=== PATIENT | male | born 1980 ===

== ENCOUNTER 2016-10-26 10:38 | Day surgery (SDC) | payer OTHER ==
[2016-10-26 11:20] VITALS: BMI 20.7
--- NOTE | 2016-10-26 13:17 | CP.SDSHP ---
Same Day Surgery H & P - History Proposed Procedure: EGD Pre-Op Diagnosis: SEE NOTES - Previous Medical/Surgical History Cardiac: Hypertension Neuro: Backaches, Other Misc: Other - Allergies Allergies: Allergies No Known Allergies Allergy (Verified 10/26/16 11:19) - Physical Exam General Appearance: N Vital Signs: Vital Signs 10/26/16 10/26/16 11:54 13:12 Temperature 98.7 F 98.7 F Pulse Rate 65 65 Respiratory 19 19 Rate Blood Pressure 109/88 109/88 O2 Sat by Pulse 100 100 Oximetry Mental Status: Alert & Oriented x3 Neuro: WNL Heart: WNL Lungs: WNL GI: Other - {Optional Preform as Required} Breast: WNL Rectal: Other Integument: WNL : WNL Ortho: Other ENT: WNL - Impression Pt. Evaluated Today:Candidate for Anesthesia & Procedure: Yes - Date & Time Time: :17 Short Stay Discharge - Short Stay Discharge Admitting Diagnosis/Reason for Visit: DYSPEPSIA Disposition: HOME/ ROUTINE
[2016-10-26] MEDS ORDERED: Pantoprazole 40 mg EC Tab PO STA (13:33)
[2016-10-26] MEDS ORDERED: Belladonna-Phenobarbital PO STA (13:33)
[2016-10-26] MEDS ORDERED: Propofol 10 mg/ml Inj (20 ML) ONE (13:43)
[2016-10-26 14:52] VITALS: TEMP 98.4
[2016-10-26 15:03] VITALS: BP 115/61; PULSE 53; RESP 16; O2SAT 100
== END 2016-10-26 15:40 | disposition home or self-care (01) ==
LOC: C.ENDO 10:38
PROVIDERS: ATTEND Specialist
DX: R10.13 Epigastric pain (principal); K44.9 Diaphragmatic hernia without obstruction or gangrene; K29.70 Gastritis, unspecified, without bleeding; K63.9 Disease of intestine, unspecified
CPT/HCPCS: 43239; 88305; J2704

== ENCOUNTER 2016-11-24 06:41 | Day surgery (SDC) | payer OTHER ==
[2016-11-24 07:18] VITALS: BMI 22.6
[2016-11-24 07:25] VITALS: RESP 20; O2SAT 97
--- NOTE | 2016-11-24 08:05 | CP.SDSHP ---
Same Day Surgery H & P - History Proposed Procedure: COLONSCOPY Pre-Op Diagnosis: SEE NOTES - Previous Medical/Surgical History Neuro: Backaches, Other Misc: Other Pain: 4.Moderate Pain - Allergies Allergies: Allergies No Known Allergies Allergy (Verified 10/26/16 11:19) - Physical Exam General Appearance: N Vital Signs: Vital Signs 11/24/16 07:18 Temperature 98.9 F Pulse Rate 80 Respiratory 20 Rate Blood Pressure 114/71 O2 Sat by Pulse 97 Oximetry Mental Status: Alert & Oriented x3 Neuro: WNL Heart: WNL Lungs: WNL GI: Other - {Optional Preform as Required} Breast: WNL Abdomen: Other Rectal: Other Integument: WNL : WNL Ortho: Other ENT: WNL - Impression Pt. Evaluated Today:Candidate for Anesthesia & Procedure: Yes - Date & Time Time: 08:05 Short Stay Discharge - Short Stay Discharge Admitting Diagnosis/Reason for Visit: RECTAL BLEEDING Disposition: HOME/ ROUTINE
[2016-11-24] MEDS ORDERED: Belladonna-Phenobarbital PO STA (08:06)
[2016-11-24] MEDS ORDERED: Propofol 10 mg/ml Inj (20 ML) ONE (08:07)
[2016-11-24] MEDS ORDERED: Lactated Ringer's 500 ML IV ONE ×2 (08:15)
[2016-11-24 09:18] VITALS: TEMP 97
[2016-11-24 09:20] VITALS: BP 118/64; PULSE 73
== END 2016-11-24 09:55 | disposition home or self-care (01) ==
LOC: C.ENDO 06:41
PROVIDERS: ATTEND Specialist
DX: K64.4 Residual hemorrhoidal skin tags (principal); K64.8 Other hemorrhoids; K60.2 Anal fissure, unspecified
CPT/HCPCS: 45380; 88305; J2704; J7120